=== PATIENT | male | born 1950 | race Caucasian/White ===

== ENCOUNTER → 2024-11-06 07:18 | Day surgery (SDC) | payer MEDICARE, SELFPAY | LOC: SDSPAT 07:18 | PROVIDERS: ATTENDING PHYSICIAN Surgery; FAMILY PHYSICIAN Internal Medicine | DX: Z01.810 Encounter for preprocedural cardiovascular examination (principal); Z01.812 Encounter for preprocedural laboratory examination; R94.31 Abnormal electrocardiogram [ECG] [EKG] | CPT/HCPCS: 93005; 36415 ==

== ENCOUNTER 2024-11-17 06:21 | Day surgery (SDC) | payer MEDICARE, SELFPAY ==
[2024-11-06 12:24] VITALS: BMI 30.3
--- NOTE | 2024-11-06 16:51 | PTCARENOTE ---
Abn ECG, Dr. Lyons notified, no requests/orders received.
[2024-11-17 06:22] VITALS: BP 160/91
[2024-11-17] MEDS: NORMOSOL-R/PLASMALYTE-A 1000 IV (06:36)
[2024-11-17] MEDS: TYLENOL 1000 MG PO (06:36)
[2024-11-17 06:48] VITALS: BMI 30.3
--- NOTE | 2024-11-17 06:50 | HP.FOC2 ---
Focused History & Physical
Chief Complaint
HPI:
Chief Complaint: Umbilical hernia
HPI / Indication for Planned Procedure: 73-year-old male recently seen in outpatient surgical evaluation secondary to a few year history of a swelling along the superior aspect of his umbilicus. Physical examination confirmed the presence of a
soft, reducible umbilical hernia, approximately 2 cm. He presents today for scheduled operative correction
Relevant Past Medical History: Other (Vitamin D insufficiency, fatty liver, hypercholesterolemia, hypertension with primary aldosteronism,)
Relevant Social History: Negative
Relevant Family History: Negative
Relevant Past Surgical History: Positive for (Appendectomy, cyst removal)
Review of Systems
Review of Pertinent Systems: All Systems Negative
Medication
See Medication form for detailed medications: Yes
Medication List (including Herbals & OTC):
multivitamin with folic acid 400 mcg tablet (Tab-A-Matti) 1 tab PO DAILY 12/03/10
metoprolol succinate 50 mg capsule sprinkle, ext. release 24 hr 50 mg PO DAILY 11/10/24
omega-3 fatty acids 1 mg PO DAILY 11/10/24
pantoprazole 40 mg tablet,delayed release 40 mg PO DAILY 11/10/24
simvastatin 40 mg tablet 40 mg PO DAILY 11/10/24
spironolactone 25 mg tablet 25 mg PO DAILY 11/10/24
Medications Reviewed: Yes
Allergies and Reactions
Patient has Allergies: Yes
Noted Allergies and Reactions:
Allergy/AdvReac Type Severity Reaction Status Date / Time
Penicillins Allergy Rash Verified 11/17/24 06:22
Pertinent Physical Exam
All Other Systems: Negative
Head/Neck: Normal
Lungs: Normal
Heart: Normal
Abdomen: Other (Umbilical hernia)
Extremities: Normal
Neurological: Normal
Diagnosis / Assessment
Umbilical hernia
Plan / Procedure
Open umbilical hernia repair with mesh
Anesthesia/Sedation to be done by Anesthesia Provider: Yes
--- NOTE | 2024-11-17 06:52 | W.SUR.PREOP ---
Pre-Operative Surgical Note
-
I have examined this patient prior to the performance of the scheduled procedure.
The patient's condition is unchanged from the time of the current History and
Physical and the patient is able to undergo the scheduled procedure.
[2024-11-17 08:16] VITALS: BP 139/91
--- NOTE | 2024-11-17 08:20 | W.IMMPOSTOP ---
Addendum entered and electronically signed by Usman Olson MD 11/17/24 08:29:
#[id number]
Original Note:
Surgical Immed Post Op Note
-
Primary Surgeon: Usman Olson
Assisting Surgeon: Ai Newberry PA-c
Pre-op Diagnosis: UH
Post-op Diagnosis: UH - 2cm
Procedure Performed: Open UHR with mesh; VentralexST 6.4 round
Anesthesia Type: MAC + 0.25% Marcaine with epi/1% Lido
Specimen / Cultures: None
Estimated Blood Loss: 4 mL
Complications: None immediate
Operative Findings: 2 cm umbilical hernia fascial defect. Underlay preperitoneal mesh repair -Ventralex ST 6.4 cm round secured to fascia with 0 PDS. Fascial defect closed with buried interrupted [id number] 0 PDS.
The assistance of Ai Newberry PA-C was required due to the complexity of the procedure. During the procedure Ai Newberry PA-C assisted with tissue retraction and exposure, as well as closure of the incision site.
[2024-11-17 08:32] VITALS: BP 127/80
[2024-11-17 08:45] VITALS: BP 146/90
[2024-11-17 09:00] VITALS: BP 155/90
== END 2024-11-17 09:12 | disposition home or self-care (01) ==
LOC: SDS 06:21
PROVIDERS: ATTENDING PHYSICIAN Surgery; FAMILY PHYSICIAN Internal Medicine
DX: K42.9 Umbilical hernia without obstruction or gangrene (principal)
CPT/HCPCS: 49593; C1781